=== PATIENT | female | born 1985 | race Caucasian/White ===

== ENCOUNTER 2018-12-20 06:27 | Inpatient (IN) ==
[2018-12-20] MEDS ORDERED: LR 1000 ML IV 1,000 ML ONE (06:38)
[2018-12-20] MEDS ORDERED: ANCEF 1 GRAM IV PREMIX* 1 G/50 ML BAG IV ONE (06:39)
[2018-12-20] MEDS ORDERED: D5 1/2 NS 1000 ML 1,000 ML IV SCH (06:43)
[2018-12-20] MEDS ORDERED: ANCEF VIAL 1 GRAM IVP ONE (06:43)
[2018-12-20] MEDS ORDERED: ILOTYCIN OPHTH OINT ONE (07:18)
[2018-12-20] MEDS ORDERED: DILAUDID INJ ONE (07:25)
[2018-12-20] MEDS ORDERED: ZOFRAN INJ 4 MG VIAL IVP PRN ×2 (08:54→09:24)
[2018-12-20] MEDS ORDERED: PHENERGAN INJ 25 MG IM PRN (08:54)
[2018-12-20] MEDS ORDERED: DILAUDID INJ IVP PRN (08:54)
[2018-12-20] MEDS ORDERED: REGLAN INJ 10 MG VIAL IVP PRN ×2 (08:54→09:24)
[2018-12-20] MEDS ORDERED: BENADRYL INJ 50 MG VIAL IVP PRN ×2 (08:54→09:24)
[2018-12-20] MEDS ORDERED: D5 1/2 NS 1000 ML 1,000 ML ONE (08:55)
[2018-12-20] MEDS ORDERED: PITOCIN ONE ×2 (08:55→15:34)
[2018-12-20] MEDS ORDERED: TORADOL 30 MG VIAL IVP PRN (09:24)
[2018-12-20] MEDS ORDERED: ADACEL or BOOSTRIX TDaP VACCINE IM ONE (09:24)
[2018-12-20] MEDS ORDERED: PERCOCET TAB 5/325 MG PO PRN (09:24)
[2018-12-20] MEDS ORDERED: MYLICON TAB 80 MG CHEW PO PRN (09:24)
[2018-12-20] MEDS ORDERED: NARCAN INJ IVP PRN (09:24)
[2018-12-20] MEDS ORDERED: D5 1/2 NS 1000 ML 1,000 ML with PITOCIN 20 UNITS IV SCH ×2 (09:24)
[2018-12-20] MEDS: PROTONIX TAB 40 MG PO SCH (11:57)
[2018-12-20] MEDS: PRENATAL PLUS PO SCH (11:58)
[2018-12-20] MEDS ORDERED: VERSED ONE (15:34)
[2018-12-20] MEDS ORDERED: EPHEDRINE SULFATE INJ ONE (15:34)
[2018-12-20] MEDS ORDERED: MARCAINE SPINAL ONE (15:34)
[2018-12-20] MEDS ORDERED: XYLOCAINE 1 % (PLAIN) ONE (15:34)
[2018-12-21 05:28] LABS: HEMATOCRIT 28.3 % (36.0-47.0); HEMOGLOBIN 9.6 g/dL (12.0-16.0)
[2018-12-21] MEDS ORDERED: PERCOCET TAB 5/325 MG PO PRN (07:35)
[2018-12-21] MEDS: COLACE CAP 100 MG PO SCH ×2 (10:25→21:01)
[2018-12-21] MEDS: PROTONIX TAB 40 MG PO SCH (10:25)
[2018-12-21] MEDS: PRENATAL PLUS PO SCH (10:25)
[2018-12-21] MEDS: MOTRIN TAB 800 MG PO PRN (10:27)
[2018-12-21] MEDS: BACTROBAN CREAM TOP SCH ×2 (14:56→21:01)
[2018-12-22] MEDS: BACTROBAN CREAM TOP SCH (05:47)
[2018-12-22] MEDS ORDERED: DEPO-PROVERA CONTRACEPTIVE INJ IM ONE (07:27)
[2018-12-22] MEDS: MOTRIN TAB 800 MG PO PRN (08:57)
[2018-12-22] MEDS: PROTONIX TAB 40 MG PO SCH (08:58)
[2018-12-22] MEDS: PRENATAL PLUS PO SCH (08:58)
[2018-12-22] MEDS: COLACE CAP 100 MG PO SCH (08:58)
[2018-12-22 10:16] VITALS: BP 102/54
[2018-12-22] MEDS ORDERED: ADACEL or BOOSTRIX TDaP VACCINE IM ONE (11:00)
== END 2018-12-22 11:00 | disposition home or self-care (01) | DRG 788 ==
LOC: LD 06:27 → MED/SURG 09:19
PROVIDERS: ADMIT Specialist; ATTEND Specialist
DX: O99.613 Diseases of the digestive system complicating pregnancy, third trimester; D50.8 Other iron deficiency anemias; O99.013 Anemia complicating pregnancy, third trimester; Z01.82 Encounter for allergy testing; O99.824 Streptococcus B carrier state complicating childbirth; B95.1 Streptococcus, group B, as the cause of diseases classified elsewhere; Z01.818 Encounter for other preprocedural examination; Z37.0 Single live birth; Z3A.39 39 weeks gestation of pregnancy; O32.1XX0 Maternal care for breech presentation, not applicable or unspecified
CPT/HCPCS: 36415; 80048; 81001; 85014; 85018; 85025; 85610; 85730; 86592; 86850; 86900; 86901; 87086; 90715; A4216; A4222; S0197; J0690; J1050; J1170; J1885; J2250; J2405; J2590; J3490; J7120; S5010